=== PATIENT | male | born 1975 | race Caucasian/White ===

== ENCOUNTER 2020-12-18 12:25 | Day surgery (SDC) | payer OTHER ==
[~2020-12-18] VITALS: Ht 177.8 cm; Wt 89.8 kg
--- NOTE | ~2020-12-18 | O ---
[facility] [place] [address] OPERATIVE REPORT Name: CYNDI AYALA Room #: DEP [facility].#: [id number] Admission: 12/18/20 Attend Phys: Leonidas Wu MD Discharge: 12/18/20 Date of : 73 Report #: [id number] THIS REPORT FOR: cc: Leonidas Aragon MD, Michael A. MD McCabe,Leonidas Montano MD ~ DOC #: [id number] Leonidas Wu MD DATE OF SERVICE: 12/18/2020 SERVICE: Orthopedics. FACILITY: [facility]. SURGEON: Leonidas Wu MD BOILER WATER TESTER: Deepika Georges NP PREOPERATIVE DIAGNOSIS: Displaced bucket-handle medial meniscus tear, right knee. POSTOPERATIVE DIAGNOSES 1. Displaced bucket-handle medial meniscus tear, right knee. 2. Right knee medial plica. 3. Right knee medial patellar facet chondromalacia. PROCEDURES: 1. Right knee arthroscopic partial medial meniscectomy. 2. Medial plica resection. 3. Limited patellar chondroplasty, right knee. COMPLICATIONS: None. DRAINS: None. SPECIMENS: None. ANESTHESIA: General. FINDINGS: 1. Intact patellofemoral joint other than a grade 2 and 3 lesion of the far medial aspect of the patella, treated with limited chondroplasty. 2. Displaced bucket-handle medial meniscus tear with contracture of the meniscal tissue and horizontal tear of the body and the posterior horn of the capsular portion of the meniscus. 3. Intact articular cartilage in lateral compartment as well as ACL and PCL. [facility] [address] [place] [address] OPERATIVE REPORT Name: CYNDI AYALA Room #: DEP [facility]..#: [id number] Admission: 12/18/20 Attend Phys: Leonidas Wu MD Discharge: 12/18/20 Date of : 73 Report #: [id number] HISTORY: The patient is a 45-year-old gentleman who has a history of persistent left knee symptoms going back up 6 weeks to an acute injury. He actually had history of a medial meniscus tear of the right knee approximately 3 years ago, treated conservatively, and he had done well. More recently, he injured the knee, which resulted in a mechanical locking of the knee and he has been managing with a limp and limited range of motion since he had an MRI that showed a bucket-handle medial meniscus tear and he was indicated for surgical treatment. He was referred for consideration of meniscal repair versus debridement. We had discussion about treatment options and together elected to proceed with meniscal repair if at all possible. The risks, benefits, alternatives and indications for surgery discussed with him in detail. Risks include but not limited to pain, bleeding, infection, injuring nerves or blood vessels, persistent pain despite surgical intervention, failure of any repairs, progression of preexisting chondral injury, stiffness, need for further surgery as well as complications related to anesthesia. Despite the risks, he wished to proceed. PROCEDURE IN DETAIL: After right lower extremity was correctly identified in the preoperative holding area as the operative extremity, the patient was taken to the operating room. General anesthesia was induced without complications, padded appropriately. Prophylactic antibiotics were administered in appropriate time. Tourniquet was applied to right leg. Right lower extremity was then prepped and draped in standard sterile fashion. Timeout procedure was performed. Esmarch was used, tourniquet inflated to 250 mmHg. Standard anterolateral viewing portal was established followed by anteromedial working portal. Diagnostic arthroscopy revealed the above findings. The medial meniscus was carefully evaluated and after it was reduced, it was grossly and obviously displaced. Upon placement of the scope into the knee, it was relatively easily reduced with some direct pressure and gapping of the medial compartment. The meniscus had an unusual wrinkled appearance to it where it was reduced and ultimately it was determined that this was due to some contracture of the tissue that had happened due to the chronicity of the displacement and the fact that the anterior horn and posterior horn were much closer to each other, where the meniscal tissue had been sitting and had contracted along this line. There was also a horizontal tear of the body and the posterior horn of the remnant and there was some fraying of the torn surface of the displaced meniscal tissue itself all that in conjunction with the history of a meniscal tear several years ago that had been treated conservatively and the duration of displacement was felt best indication for proceeding with partial meniscectomy. The biter and the shaver was then used to resect the flipped portion of the meniscus at the anterior horn attachment as well as at the posterior horn attachment and then the shaver was used to debride the peripheral meniscal tissue. Approximately 60% meniscal volume was resected with [address] [address] OPERATIVE REPORT Name: CYNDI AYALA Room #: DEP [facility].#: [id number] Admission: 12/18/20 Attend Phys: Leonidas Wu MD Discharge: 12/18/20 Date of : 73 Report #: [id number] the surgery. Leg was placed in a [id number] position, the lateral compartment was evaluated and found to be healthy. We then switched the working portal to laterally and the scope to medially and completed the debridement around the front of the meniscus. The knee was placed into extended position and then the shaver was used to perform a chondroplasty of the medial patellar facet and the arthroscopic effusion was drained. The instruments were removed. Portal sites were closed. Sterile dressing was applied followed by compression stocking. The patient was awakened from anesthesia and taken to recovery room in stable condition. No complications. All counts were reported as correct. Leonidas Wu MD MPM/NIT By: [id number] Leonidas Wu MD /nt
[2020-12-18 12:59] VITALS: BP 142/92
[2020-12-18 16:41] VITALS: BP 142/92
== END 2020-12-18 17:15 | disposition home or self-care (01) ==
LOC: OR 12:25 → TBA 12:26 → OR 13:21
PROVIDERS: ATTEND Orthopaedic Surgery Sports Medicine
DX: S83.211A Bucket-handle tear of medial meniscus, current injury, right knee, initial encounter (principal); M67.51 Plica syndrome, right knee; M22.41 Chondromalacia patellae, right knee; K21.9 Gastro-esophageal reflux disease without esophagitis; Z98.890 Other specified postprocedural states; Z79.899 Other long term (current) drug therapy; X58.XXXA Exposure to other specified factors, initial encounter; Y93.89 Activity, other specified; Y92.89 Other specified places as the place of occurrence of the external cause; Y99.8 Other external cause status
CPT/HCPCS: 50010; 50101; 50405; 56527; 57103; 57180; 58589; 58680; 62110; 62900; 70005